=== PATIENT | female | born 1970 | race Caucasian/White ===

== ENCOUNTER 2018-08-02 08:00 | Day surgery (SDC) | payer BC ==
[~2018-08-02 08:00] MED LIST: Lactated Ringers 1,000 ML IV SCH; Sodium Chloride 0.9% 10 ML SDV IV PRN; Sodium Chloride 0.9% 10 ML Syringe FLUSH PRN; Sodium Chloride 0.9% 2.5 ML Syringe FLUSH PRN; ceFAZolin 2 GM in Premix Bag 1 BAG IV ONE
[2018-08-02] MEDS ORDERED: Methylene Blue 50 MG/10 ML Ampule ONE (08:51)
[2018-08-02] MEDS ORDERED: Bupivacaine 0.5% 10 ML SDV ONE (08:52)
[2018-08-02] MEDS ORDERED: Lidocaine 1% 20 ML MDV ONE (08:52)
--- NOTE | 2018-08-02 09:06 | PCM.PREANE ---
Preanesthetic Assessment - Anesthesia/Transfusion/Family Hx Anesthesia History: Prior Anesthesia Without Reaction Family History of Anesthesia Reaction: No Transfusion History: No Prior Transfusion(s) - Review of Systems General: No Symptoms Pulmonary: No Symptoms Cardiovascular: No Symptoms Gastrointestinal: No Symptoms Neurological: No Symptoms Other: Reports: None - Physical Assessment NPO Status Date: 08/01/18 Height: 5 ft 5 in Weight: 73.028 kg ASA Class: 2 Mental Status: Alert & Oriented x3 Airway Class: Mallampati = 1 Dentition: Reports: Normal Dentition ROM/Head Extension: Full Lungs: Clear to Auscultation, Normal Respiratory Effort Cardiovascular: Regular Rate, Regular Rhythm - Allergies Allergies/Adverse Reactions: Allergies Allergy/AdvReac Type Severity Reaction Status Date / Time Sulfa (Sulfonamide Allergy Rash Verified 07/26/18 14:39 Antibiotics) flu vaccine Allergy Rash Uncoded 07/26/18 14:39 - Blood Blood Available: No - Anesthesia Plan Pre-Op Medication Ordered: None - Acknowledgements Anesthesia Type Planned: General Anesthesia Pt an Appropriate Candidate for the Planned Anesthesia: Yes Alternatives and Risks of Anesthesia Discussed w Pt/Guardian: Yes Pt/Guardian Understands and Agrees with Anesthesia Plan: Yes Additional Comments: PMH: breast ca, thyroid replacement PLAN: GET PreAnesthesia Questionnaire HEENT History: Reports: Other (See Below) Other HEENT History: wears glasses Cardiovascular History: Reports: None Respiratory History: Reports: None Gastrointestinal History: Reports: None Genitourinary History: Reports: None Musculoskeletal History: Reports: Fracture Neurological History: Reports: None Psychiatric History: Reports: None Endocrine/Metabolic History: Reports: Hypothyroidism Hematologic History: Reports: None Immunologic History: Reports: None Oncologic (Cancer) History: Reports: Breast, Other (See Below) Other Oncologic History: invasive ductal carcinoma left breast Dermatologic History: Reports: None - Past Surgical History Head Surgeries/Procedures: Reports: None Cardiovascular Surgical History: Reports: None Respiratory Surgical History: Reports: None GI Surgical History: Reports: None Female Surgical History: Reports: None Endocrine Surgical History: Reports: None Neurological Surgical History: Reports: None Musculoskeletal Surgical History: Reports: Other (See Below) Other Musculoskeletal Surgeries/Procedures:: surgical tx of fx left knee, hardware removal 1 year later Dermatological Surgical History: Reports: None - SUBSTANCE USE Smoking Status *Q: Never Smoker Recreational Drug Use History: No - HOME MEDS Home Medications: Home Meds Calcium Carbonate/Vitamin D3 [Caltrate 600 + D Soft Chew Tab] 1 tab.chew CHEW DAILY 07/26/18 [History] Levothyroxine Sodium [Synthroid] 100 mcg PO DAILY 07/26/18 [History] Lysine 500 mg PO DAILY 07/26/18 [History] Multivitamin [Multivitamins] 1 tab PO DAILY 07/26/18 [History] - CURRENT (IN HOUSE) MEDS Current Meds: Current Medications Lactated Ringer's (Ringers, Lactated) 1,000 mls @ 125 mls/hr IV ASDIRECTED JAZIEL Last Admin: 08/02/18 09:04 Dose: 125 mls/hr Sodium Chloride (Saline Flush) 10 ml FLUSH ASDIRECTED PRN PRN Reason: Keep Vein Open Sodium Chloride (Saline Flush) 2.5 ml FLUSH ASDIRECTED PRN PRN Reason: Keep Vein Open Sodium Chloride (Normal Saline) 10 ml IV ASDIRECTED PRN PRN Reason: IV Use Discontinued Medications Bupivacaine HCl (Sensorcaine-Mpf 0.5%) Confirm Administered Dose 10 ml .ROUTE .STK-MED ONE Stop: 08/02/18 08:53 Cefazolin Sodium/Dextrose 2 gm (/ Premix) 50 mls @ 100 mls/hr IV ONETIME ONE Stop: 08/01/18 09:19 Lidocaine HCl (Xylocaine 1%) Confirm Administered Dose 20 ml .ROUTE .STK-MED ONE Stop: 08/02/18 08:53 Methylene Blue (Provayblue) Confirm Administered Dose 50 mg .ROUTE .STK-MED ONE Stop: 08/02/18 08:52
[2018-08-02] MEDS ORDERED: Propofol 200 MG/20 ML SDV ONE (09:34)
[2018-08-02] MEDS ORDERED: fentaNYL 250 MCG/5 ML SDV ONE (09:35)
[2018-08-02] MEDS ORDERED: Midazolam 1 MG/ML 2 ML SDV ONE (09:35)
[2018-08-02] MEDS ORDERED: Ondansetron 4 MG/2 ML SDV ONE (09:36)
[2018-08-02] MEDS ORDERED: Dexamethasone 4 MG/ML 5 ML MDV ONE (09:36)
[2018-08-02] MEDS ORDERED: Rocuronium 10 MG/ML 10 ML Syringe ONE (09:52)
[2018-08-02] MEDS ORDERED: Succinylcholine 200 MG/10 ML MDV ONE (09:52)
[2018-08-02] MEDS ORDERED: ceFAZolin/Dextrose,Iso-Osmotic 2 GM/50 ML Duplex Bag IV ONE (09:58)
[2018-08-02] MEDS ORDERED: Phenylephrine/Normal Saline 100 MCG/ML 10 ML Syringe ONE (13:03)
[2018-08-02] MEDS ORDERED: ePHEDrine 50 MG/ML SDV ONE (13:03)
[2018-08-02] MEDS ORDERED: Sodium Chloride 0.9% 20 ML ONE (13:03)
--- NOTE | 2018-08-02 13:21 | NM ---
EXAMINATION: Left breast lymphoscintigraphy HISTORY: Neoplasm COMPARISON: None TECHNIQUE: Left perihilar region was sterilized with ChloraPrep. A total of 8 intradermal injections were made along the areolar margin. Approximately half of the 1.0 mCi of technetium 99m labeled sulfur colloid was injected in total. The patient tolerated the procedure well. FINDINGS: Early imaging demonstrates a high left axillary tail lymph node versus low axillary lymph node demonstrated. IMPRESSION: Successful left breast lymphoscintigraphy.
--- NOTE | 2018-08-02 13:22 | MY ---
EXAMINATION: Specimen mammogram HISTORY: Mastectomy COMPARISON: 05/16/2018 TECHNIQUE: Single specimen mammogram performed FINDINGS/IMPRESSION: The provided specimen demonstrates the clip and mass of concern.
--- NOTE | 2018-08-02 13:24 | US ---
EXAMINATION: Ultrasound guided left breast wire localization HISTORY: Mass COMPARISON: 06/19/2018 TECHNIQUE: The procedure, risks, and benefits were discussed with the patient. Written informed consent was obtained. The left breast mass was identified. The overlying region was sterilely prepped read 1% lidocaine was administered for local anesthesia. Using ultrasound guidance a wire localization needle was advanced through the mass and the hook was deployed just distally. IMPRESSION: Successful ultrasound-guided wire localization of a left breast mass.
[2018-08-02] MEDS ORDERED: Ketorolac 30 MG/ML SDV ONE (13:42)
[2018-08-02] MEDS ORDERED: Octyl 2-Cyanoacrylate 1 Tube ONE (13:55)
--- NOTE | 2018-08-02 14:34 | PCM.OPNOTE ---
- General Post-Op/Procedure Note Date of Surgery/Procedure: 08/02/18 Operative Procedure(s): Left breast lumpectomy and left axillary sentinel lymph node biopsy Findings: 3 lymph nodes found in the left axilla. One lymph node with mets on frozen. Left breast lesions removed with good posterior margin on frozen and clip and wire in mammogram of specimen. Pre Op Diagnosis: Invasive ductal carcinoma. Post-Op Diagnosis: same Anesthesia Technique: General ET Tube Primary Surgeon: Margy Mane Sheeter Machine Operator: Lavinia Palacio Pathology: sentinel lymph nodes, left breast lumpectomy Fluid Replacement, Intraop: 1,600 Output, Urine Amount: 600 EBL in mLs: 30 Condition: Good
[2018-08-02] MEDS ORDERED: fentaNYL 100 MCG/2 ML SDV IVPUSH PRN (14:43)
--- NOTE | 2018-08-02 14:52 | PCM.POSTAN ---
POST ANESTHESIA ASSESSMENT - MENTAL STATUS Mental Status: Alert, Oriented - RESPIRATORY Respiratory Status: Respiratory Rate WNL, Airway Patent, O2 Saturation Stable - CARDIOVASCULAR CV Status: Pulse Rate WNL, Blood Pressure Stable - GASTROINTESTINAL GI Status: No Symptoms - PAIN Pain Score: 0 - POST OP HYDRATION Hydration Status: Adequate & Stable
--- NOTE | 2018-08-02 16:21 | PCM48HPAN ---
Post Anesthesia Note - EVALUATION WITHIN 48HRS OF ANESTHETIC Vital Signs in Normal Range: Yes Patient Participated in Evaluation: Yes Respiratory Function Stable: Yes Airway Patent: Yes Cardiovascular Function Stable: Yes Hydration Status Stable: Yes Pain Control Satisfactory: Yes Nausea and Vomiting Control Satisfactory: Yes (Taking ice chips and states nausea has gotten a lot better) Mental Status Recovered: Yes Resp Rate: 12
--- NOTE | 2018-08-02 17:16 | OR ---
SURGEON: HARJEET LAL MD DATE OF PROCEDURE: 08/02/2018 PREOPERATIVE DIAGNOSIS: Left side invasive ductal carcinoma of the breast. POSTOPERATIVE DIAGNOSIS: Left side invasive ductal carcinoma of the breast. PROCEDURES PERFORMED: Left breast lumpectomy and sentinel lymph node biopsy. H[employer] FR[employer] OFFICE MANAGER: PASCUAL Kerr student. ANESTHESIA: General endotracheal anesthesia. FLUIDS: 1600 mL of crystalloid. ESTIMATED BLOOD LOSS: 30 mL. URINE OUTPUT: 600 mL. FINDINGS: Three sentinel lymph nodes in the left axilla. One of these lymph nodes contained metastases. No gross palpable lymphadenopathy. Left breast lumpectomy specimen containing biopsy clip and surgical wire. Posterior margin free on frozen section. COMPLICATIONS: None. INDICATION: The patient is a 48-year-old female who presents with a biopsy-proven invasive ductal carcinoma of the left breast. The patient and I had lengthy discussions regarding her treatment options. She visited with a medical oncologist as well. She decided to proceed with a lumpectomy and sentinel lymph node biopsy. We discussed the procedure, expected perioperative course, and risks including bleeding, infection, or damage to surrounding structures. The patient verbalized understanding and wishes to proceed. PROCEDURE IN DETAIL: The patient was brought to the operating room and placed on the operating room table in supine position. A time-out was completed verifying the patient's name, age, date of , allergies, and procedure to be performed. General endotracheal anesthesia was induced. The patient's left upper arm, axilla, and left chest were prepped and draped in usual sterile fashion. Prior to the procedure, she underwent a nuclear medicine injection with radioactive isotope and a needle localization of the breast mass. Pre-operative nuclear scanning showed good uptake of the radioactive dye into the left axilla. To aid in identification of sentinel lymph nodes, I injected 5 mL of methylene blue in circumferential fashion in the subcutaneous around her areola. This was massaged into the tissues for 5 minutes. After this was completed, I used the Brimson counter to identify the area of greatest radioactivity in the patient's axilla. This area was marked with a marking pen. I anesthetized the area with 0.5% Marcaine plain. A 15 blade was used to make an incision along the skin lines over the marked area. Using a Brimson counter as a guide, I dissected through the subcutaneous fat down into the axilla. I identified two lymph nodes that appeared to be blue and had radioactivity. I dissected these out using electrocautery and Metzenbaum scissors. Some bleeding was encountered and a surgical clip was placed. This achieved hemostasis. These lymph nodes were removed and found to have radioactivity of 6000 on the back table. I then re-explored my axilla and found another area of increased uptake. This area was dissected out as well, and a singular lymph node was removed. The radioactivity on the back table was measured at 720. I then reinspected my operative field. No further radioactivity was noted. I did not feel any palpable lymphadenopathy. I did not see any further blue lymph nodes. Another clip was placed where the third lymph node was removed to achieve hemostasis. The wound was packed with a moistened lap. The sentinel lymph nodes were sent to Pathology. On frozen section, one of the lymph nodes contained evidence of metastases, the other two did not. The Z-11 breast trial showed that breast cancer patients with pre- operative Stage T1-2 breast cancer with no clinical evidence of lymphadenopathy who are found to have metastatic disease in 1-2 lymph nodes at that time of surgery do not benefit from completion axillary lymph node dissection. Because of this this, I did not perform any further axillary lymph node dissection. I turned my attention to the breast. I anesthetized the left upper outer quadrant with Percent Marcaine plain. A semicircular incision was made in the left upper outer quadrant over the area of the mass. Cautery was used to dissect down into the breast tissue. Using my localizing needle as a guide, I dissected down to the area of the lump. A rectangular dissection was carried out around the tip of the needle using electrocautery. I palpated my margins and they appeared to be clear with tip of the needle well within my lumpectomy specimen. Once the lumpectomy specimen was removed, it was placed on the back table and inked for margins. I then took the lumpectomy specimen to Radiology. A mammogram image was taken that showed the end of the needle well within the lumpectomy specimen and the biopsy clip in the specimen as well. The specimen was then taken to Pathology. A frozen section was performed of the posterior margin, and this was clear. I returned to the operating room and inspected my operative field. It appeared to be hemostatic. Clips were placed along my posterior margin for identification of the surgical field in the future. I then closed the lumpectomy site with interrupted 3-0 Vicryl sutures in deep to superficial layers. The skin was then closed with a running 4-0 Monocryl suture. I then turned my attention back to my sentinel lymph node site. Cautery was used to achieve hemostasis. This site was closed with interrupted 3 - 0 Vicryl in the subcutaneous fat layer, and the skin was closed with a running 4 - 0 Monocryl suture. Dermabond was applied then covered with sterile dressings. The patient tolerated the procedure well. All counts were complete and correct at the end of the case. The patient was extubated and was taken to PACU in stable condition. ROSITA OLIVEROS /[id number]
== END 2018-08-02 17:05 | disposition home or self-care (01) ==
LOC: MW.SDS 08:00 → EDSTATUS 11:15 → MW.SDS 17:05
PROVIDERS: ATTEND Surgery
DX: C50.912 Malignant neoplasm of unspecified site of left female breast (principal); C77.3 Secondary and unspecified malignant neoplasm of axilla and upper limb lymph nodes; E03.9 Hypothyroidism, unspecified; Z17.0 Estrogen receptor positive status [ER+]; Z88.7 Allergy status to serum and vaccine; Z88.2 Allergy status to sulfonamides; Z79.899 Other long term (current) drug therapy
CPT/HCPCS: 19285; 19301; 36415; 38525; 38900; 76098; 78195; 84703; A9270; A9541; J0131; J0330; J0690; J1100; J1885; J2001; J2250; J2370; J2405; J2704; J3010; J3490; J7120; 01610

== ENCOUNTER 2023-03-30 09:50 | Day surgery (SDC) | payer BC ==
[~2023-03-30 09:50] MED LIST changes: -Sodium Chloride 0.9% 10 ML SDV IV PRN; +Sodium Chloride 0.9% 20 ML SDV IV PRN; -ceFAZolin 2 GM in Premix Bag 1 BAG IV ONE; +propofoL 50 ML ONE
== END 2023-03-30 12:00 | disposition home or self-care (01) ==
LOC: MW.SDS 09:50
PROVIDERS: ATTEND Surgery
DX: Z12.11 Encounter for screening for malignant neoplasm of colon (principal); D12.3 Benign neoplasm of transverse colon; D12.4 Benign neoplasm of descending colon; D12.5 Benign neoplasm of sigmoid colon; R11.0 Nausea; E03.9 Hypothyroidism, unspecified; Z88.2 Allergy status to sulfonamides; Z88.7 Allergy status to serum and vaccine; Z79.890 Hormone replacement therapy; Z79.899 Other long term (current) drug therapy
CPT/HCPCS: J2704; J7120